=== PATIENT | male | born 1955 | race Caucasian/White ===

== ENCOUNTER 2020-08-14 08:00 | Outpatient (CLI) | payer OTHER ==
[2020-08-14 13:34] LABS: BASOPHILS % (AUTO) 0.9 %; EOSINOPHILS % (AUTO) 0.6 %; HGB - HEMOGLOBIN 14.9 g/dL (14.0-18.0); LYMPHOCYTES # (AUTO) 1.8 10^3/uL (1.5-3.5); LYMPHOCYTES % (AUTO) 39.7 %; MEAN CORPUSCULAR HGB CONC 33.3 g/dL (32.0-36.0); MEAN CORPUSCULAR VOLUME 92.9 fL (80.0-94.0); MEAN PLATELET VOLUME 9.7 fL (7.4-11.4); MONOCYTES # (AUTO) 0.4 10^3/uL (0.0-1.0); NEUTROPHILS # (AUTO) 2.4 10^3/uL (1.5-6.6); NEUTROPHILS % (AUTO) 50.6 %; PLT - PLATELET COUNT 264 10^3/uL (130-450); RED BLOOD COUNT 4.81 10^6/uL (4.70-6.10); RED CELL DISTRIBUTION WIDTH 12.9 % (12.0-15.0); WHITE BLOOD COUNT 4.6 x10^3/uL (4.8-10.8)
[2020-08-14 13:56] LABS: ALBUMIN/GLOBULIN RATIO 1.6 (1.0-2.2); ALKALINE PHOSPHATASE 57 IU/L (42-121); ALT ALANINE AMINOTRANSFERASE 18 IU/L (10-60); AST ASPARTATE AMINOTRANSFERASE 20 IU/L (10-42); BILIRUBIN,TOTAL 1.8 mg/dL (0.2-1.0); BUN - BLOOD UREA NITROGEN 21 mg/dL (6-20); CALCIUM 9.6 mg/dL (8.5-10.3); CARBON DIOXIDE - CO2 27 mmol/L (21-32); CHLORIDE 102 mmol/L (101-111); CHOL/HDL RATIO 4.6 (<5.0); CHOLESTEROL 237 mg/dL; CREATININE 0.9 mg/dL (0.6-1.2); GLUCOSE 97 mg/dL (70-100); HDL CHOLESTEROL 52 mg/dL; LDL CHOLESTEROL,CALCULATED 166 mg/dL; LDL/HDL RATIO 3.2 (<3.6); SODIUM 138 mmol/L (135-145); TOTAL PROTEIN 8.2 g/dL (6.7-8.2); VLDL CHOLESTEROL 19 mg/dL
[2020-08-14 14:03] LABS: PSA TOTAL 2.729 ng/mL (0.000-2.000)
[2020-08-14 14:54] LABS: PSA FREE 0.41 ng/mL (0.16-2.81)
== END 2020-08-14 23:59 | disposition home or self-care (01) ==
LOC: LAB.WCP 08:00
PROVIDERS: ATTEND Family Medicine
DX: N52.9 Male erectile dysfunction, unspecified (principal)
CPT/HCPCS: 36415; 80053; 80061; 83721; 84153; 84154; 84403; 84443; 85025

== ENCOUNTER 2020-09-23 09:42 | Outpatient (CLI) | payer OTHER ==
--- NOTE | 2020-09-23 10:23 | XRAY Report ---
PROCEDURE: Elbow 3 View RT INDICATIONS: RT TENNIS ELBOW TECHNIQUE: 3 views of the elbow were acquired. COMPARISON: None FINDINGS: Bones: No fractures or dislocations. No suspicious bony lesions. Soft tissues: No elbow joint effusion. No suspicious soft tissue calcifications. IMPRESSION: No acute fracture. No osseous lesion. If symptoms and/or clinical suspicion for pathology continue, f urther assessment with repeat plain films, or advanced imaging (e.g., CT, MRI, or bone scan) is recom mended for further assessment. Reviewed by: José Miguel Webber MD on 09/23/2020 10:21 AM [facility] Approved by: José Miguel Webber MD on 09/23/2020 10:21 AM [facility] Station ID: [id number]
== END 2020-09-23 09:43 | disposition home or self-care (01) ==
LOC: DI 09:42
PROVIDERS: ATTEND Family Medicine
DX: M77.11 Lateral epicondylitis, right elbow (principal)

== ENCOUNTER 2020-11-11 08:00 | Outpatient (CLI) | payer OTHER ==
[2020-11-11 21:13] LABS: PSA FREE 0.38 ng/mL (0.16-2.81)
[2020-11-11 21:14] LABS: PSA TOTAL 1.73 ng/mL (0.000-2.000)
== END 2020-11-11 23:59 | disposition home or self-care (01) ==
LOC: LAB.WCP 08:00
PROVIDERS: ATTEND Family Medicine
DX: R97.20 Elevated prostate specific antigen [PSA] (principal)
CPT/HCPCS: 36415; 84153; 84154

== ENCOUNTER 2021-03-18 08:51 | Outpatient (CLI) | payer OTHER ==
--- NOTE | 2021-03-18 09:27 | XRAY Report ---
PROCEDURE: Hand 3 View LT INDICATIONS: TRIGGER FINGER OF LEFT FINGER TECHNIQUE: 3 views of the hand(s) acquired. COMPARISON: None. FINDINGS: No acute fracture identified. Scattered subchondral sclerosis and spurring. Marginal lucency seen at the DIP joints of the index and middle fingers. IMPRESSION: Mild diffuse degenerative changes as above. Marginal lucencies at the DIP joints of the index and middle fingers, possibly cysts versus erosions. Reviewed by: Coleman Mills MD on 03/18/2021 9:26 AM PDT Approved by: Coleman Mills MD on 03/18/2021 9:26 AM PDT Station ID: [id number]
== END 2021-03-18 08:52 | disposition home or self-care (01) ==
LOC: DI 08:51
PROVIDERS: ATTEND Family Medicine
DX: M25.742 Osteophyte, left hand (principal); R93.6 Abnormal findings on diagnostic imaging of limbs

== ENCOUNTER 2021-09-01 14:21 | Outpatient (CLI) | payer OTHER | END 2021-09-01 23:59 | disposition home or self-care (01) | LOC: LAB.WCP 14:21 | DX: Z12.5 Encounter for screening for malignant neoplasm of prostate (principal) | CPT/HCPCS: 36415; 84153 ==

== ENCOUNTER 2022-08-26 13:03 | Outpatient (CLI) | payer MEDICARE, BC, OTHER ==
[2022-08-26 17:46] LABS: BASOPHILS # (AUTO) 0.1 10^3/uL (0.0-0.1); BASOPHILS % (AUTO) 0.6 %; EOSINOPHILS # (AUTO) 0.1 10^3/uL (0.0-0.7); EOSINOPHILS % (AUTO) 0.8 %; HCT - HEMATOCRIT 42.1 % (42.0-52.0); HGB - HEMOGLOBIN 14.1 g/dL (14.0-18.0); LYMPHOCYTES # (AUTO) 1.5 10^3/uL (1.5-3.5); LYMPHOCYTES % (AUTO) 15.8 %; MEAN CORPUSCULAR HEMOGLOBIN 30.9 pg (27.0-31.0); MEAN CORPUSCULAR HGB CONC 33.5 g/dL (32.0-36.0); MEAN CORPUSCULAR VOLUME 92.3 fL (80.0-94.0); MEAN PLATELET VOLUME 9.5 fL (7.4-11.4); MONOCYTES # (AUTO) 0.6 10^3/uL (0.0-1.0); MONOCYTES % (AUTO) 5.8 %; NEUTROPHILS # (AUTO) 7.3 10^3/uL (1.5-6.6); NEUTROPHILS % (AUTO) 76.9 %; PLT - PLATELET COUNT 338 10^3/uL (130-450); RED BLOOD COUNT 4.56 10^6/uL (4.70-6.10); RED CELL DISTRIBUTION WIDTH 13.2 % (12.0-15.0); WHITE BLOOD COUNT 9.5 x10^3/uL (4.8-10.8)
[2022-08-26 18:05] LABS: ALBUMIN 4.4 g/dL (3.2-5.5); ALBUMIN/GLOBULIN RATIO 1.3 (1.0-2.2); ALKALINE PHOSPHATASE 79 IU/L (42-121); ALT ALANINE AMINOTRANSFERASE 22 IU/L (10-60); AST ASPARTATE AMINOTRANSFERASE 26 IU/L (10-42); BILIRUBIN,TOTAL 1.1 mg/dL (0.2-1.0); BUN - BLOOD UREA NITROGEN 10 mg/dL (6-20); CALCIUM 9.4 mg/dL (8.5-10.3); CARBON DIOXIDE - CO2 28 mmol/L (21-32); CHLORIDE 102 mmol/L (101-111); CHOL/HDL RATIO 4.9 (<5.0); CHOLESTEROL 205 mg/dL; CREATININE 0.8 mg/dL (0.6-1.2); GFR - MDRD 97 (>89); GLUCOSE 114 mg/dL (70-100); HDL CHOLESTEROL 42 mg/dL; LDL CHOLESTEROL,CALCULATED 142 mg/dL; LDL/HDL RATIO 3.4 (<3.6); POTASSIUM 3.6 mmol/L (3.5-5.0); SODIUM 138 mmol/L (135-145); TOTAL PROTEIN 7.9 g/dL (6.7-8.2); TRIGLYCERIDES 107 mg/dL; VLDL CHOLESTEROL 21 mg/dL
[2022-08-26 18:08] LABS: THYROID STIMULATING HORMONE 1.47 uIU/mL (0.34-5.60)
== END 2022-08-26 13:04 | disposition home or self-care (01) ==
LOC: LAB.N 13:03
PROVIDERS: ATTEND Family Medicine
DX: Z00.00 Encounter for general adult medical examination without abnormal findings (principal); Z12.5 Encounter for screening for malignant neoplasm of prostate; E78.5 Hyperlipidemia, unspecified
CPT/HCPCS: 36415; 80053; 80061; 84443; 85025; G0103; 83721; 84153

== ENCOUNTER 2022-09-11 09:34 | Outpatient (CLI) | payer MEDICARE, BC, OTHER ==
--- NOTE | 2022-09-11 16:42 | XRAY Report ---
PROCEDURE: Lumbar Spine 2 View INDICATIONS: LOW BACK PAIN TECHNIQUE: 2 views of the lumbar spine were acquired. COMPARISON: None. FINDINGS: Bones: 5 [id number] vertebrae are present. There is normal bony alignment. No vertebral body compression fractures. No suspicious bony lesions. The disc heights are well preserved. Bridging anterior osteophytes can be seen at the L4 level. Face t arthropathy is seen, which is most prominent inferiorly. Soft tissues: Overlying bowel gas pattern is normal. No suspicious soft tissue calcifications. IMPRESSION: Lower lumbar spine facet arthropathy is seen. Bridging anterior osteophytes at L4-L5 noted. If it would be helpful for clinical management decision making, please consider a dedicated, schedule d lumbar MRI for further evaluation (assuming that there is no contraindication). Reviewed by: Mando Miller MD on 09/11/2022 3:40 PM [facility] Approved by: Mando Miller MD on 09/11/2022 3:40 PM [facility] Station ID: [id number]
== END 2022-09-11 09:35 | disposition home or self-care (01) ==
LOC: DI 09:34
PROVIDERS: ATTEND Family Medicine
DX: M47.816 Spondylosis without myelopathy or radiculopathy, lumbar region (principal); M25.78 Osteophyte, vertebrae

== ENCOUNTER 2022-12-23 08:08 | Outpatient (CLI) | payer MEDICARE, BC, OTHER ==
--- NOTE | 2022-12-23 14:19 | XRAY Report ---
PROCEDURE: Toe(s) LT INDICATIONS: CONTUSION OF LESSER TOE WITHOUT DAMAGE TO NAIL. TECHNIQUE: 3 views of the fifth toe(s) acquired. COMPARISON: None FINDINGS: Bones: No fractures or dislocations. No suspicious bony lesions. Soft tissues: No suspicious soft tissue densities. IMPRESSION: No visualized acute fracture or dislocation. However, occult injury cannot be excluded. Recommend alina rt interval imaging follow-up in 7-10 days as clinically indicated for additional evaluation. Reviewed by: Brooke Perez MD on 12/23/2022 2:17 PM PDT Approved by: Brooke Perez MD on 12/23/2022 2:17 PM PDT Station ID: [id number]
== END 2022-12-23 23:59 | disposition home or self-care (01) ==
LOC: DI.N 08:08
PROVIDERS: ATTEND Physician Assistant
DX: S90.122A Contusion of left lesser toe(s) without damage to nail, initial encounter (principal)
CPT/HCPCS: 73660

== ENCOUNTER 2024-02-13 09:04 | Outpatient (CLI) | payer MEDICARE, BC, OTHER ==
[2024-02-13 09:21] LABS: BASOPHILS % (AUTO) 1.1 %; EOSINOPHILS % (AUTO) 1.1 %; HCT - HEMATOCRIT 42.5 % (42.0-52.0); HGB - HEMOGLOBIN 14.8 g/dL (14.0-18.0); LYMPHOCYTES # (AUTO) 1.6 10^3/uL (1.5-3.5); LYMPHOCYTES % (AUTO) 44.7 %; MEAN CORPUSCULAR HEMOGLOBIN 32.5 pg (27.0-31.0); MEAN CORPUSCULAR HGB CONC 34.8 g/dL (32.0-36.0); MEAN CORPUSCULAR VOLUME 93.2 fL (80.0-94.0); MEAN PLATELET VOLUME 9.2 fL (7.4-11.4); MONOCYTES # (AUTO) 0.3 10^3/uL (0.0-1.0); MONOCYTES % (AUTO) 7.4 %; NEUTROPHILS # (AUTO) 1.7 10^3/uL (1.5-6.6); NEUTROPHILS % (AUTO) 45.4 %; PLT - PLATELET COUNT 227 10^3/uL (130-450); RED BLOOD COUNT 4.56 10^6/uL (4.70-6.10); RED CELL DISTRIBUTION WIDTH 12.7 % (12.0-15.0); WHITE BLOOD COUNT 3.7 x10^3/uL (4.8-10.8)
[2024-02-13 09:39] LABS: ALBUMIN/GLOBULIN RATIO 1.8 (1.0-2.2); ALKALINE PHOSPHATASE 65 IU/L (42-121); ALT ALANINE AMINOTRANSFERASE 15 IU/L (10-60); AST ASPARTATE AMINOTRANSFERASE 20 IU/L (10-42); BILIRUBIN,TOTAL 1.6 mg/dL (0.2-1.0); BUN - BLOOD UREA NITROGEN 21 mg/dL (6-20); CALCIUM 9.9 mg/dL (8.5-10.3); CARBON DIOXIDE - CO2 31 mmol/L (21-32); CHLORIDE 102 mmol/L (101-111); CHOL/HDL RATIO 3.3 (<5.0); CHOLESTEROL 228 mg/dL; CREATININE 0.9 mg/dL (0.6-1.3); GFR - MDRD 84 (>89); GLUCOSE 113 mg/dL (74-104); HDL CHOLESTEROL 70 mg/dL; LDL CHOLESTEROL,CALCULATED 141 mg/dL; POTASSIUM 4.1 mmol/L (3.5-4.5); SODIUM 139 mmol/L (135-145); TOTAL PROTEIN 7.8 g/dL (6.4-8.9); TRIGLYCERIDES 85 mg/dL (48-352); VLDL CHOLESTEROL 17 mg/dL
[2024-02-13 09:57] LABS: THYROID STIMULATING HORMONE 2.82 uIU/mL (0.34-5.60)
[2024-02-14 18:08] LABS: FREE TESTOSTERONE(DIRECT) 6.6 pg/mL (6.6-18.1)
== END 2024-02-13 09:05 | disposition home or self-care (01) ==
LOC: LAB 09:04
PROVIDERS: ATTEND Family Medicine
DX: E78.5 Hyperlipidemia, unspecified (principal); Z12.5 Encounter for screening for malignant neoplasm of prostate; G47.9 Sleep disorder, unspecified
CPT/HCPCS: 36415; 80053; 80061; 84402; 84403; 84443; 85025; G0103; 83721; 84153